=== PATIENT | male | born 1985 | race Hispanic/Latino ===

== ENCOUNTER 2024-12-22 12:25 | Emergency (ER) | payer SELFPAY ==
[2024-12-22 12:27] VITALS: BP 160/103
--- NOTE | 2024-12-22 13:19 | ED.SKININJ ---
HPI-Injury
General
Chief Complaint: Skin Surface Trauma
Source: patient
Exam Limitations: none
Time Seen by Provider: 12/22/24 13:10
History of Present Illness-Injury
Initial Injury comments:
39-year-old male [id number] presents with left long finger laceration. He sustained this via a hedge tremor. He notes is deep and is having trouble straighten the tip of his finger. He also notes pain over the midportion of his finger.
Last tetanus unknown.
Phy Exam
Physical Exam
Physical Exam:
General: Well-appearing male no acute distress
Skin: 3 cm transverse laceration dorsal aspect overlying middle phalanx of left long finger there is tendon and potentially bone involvement
Musculoskeletal exam: There is a flexion deformity of the DIP joint of the long finger. He also has a deformed middle phalanx of the long finger
Neurologic: Good sensation to the distal portion of the long finger
Vascular: Brisk capillary refill to the finger
Course
Orders/Labs/Results
Orders:
Orders
12/22/24 13:18
Tetanus/Diphth/Acelpertussis [Adacel] 0.5 ml IM .ONCE ONE
CR Finger(s)/thumb Min 2 Vw Lt Urgent
Comment:
Reason For Exam: laceration
Vital Signs
Initial and Last Documented VS:
Initial Vital Signs
Temp Pulse Resp BP Pulse Ox
98.0 F 120 16 160/103 98
12/22/24 12:27 12/22/24 12:27 12/22/24 12:27 12/22/24 12:27 12/22/24 12:27
Last Documented Vital Signs
Temp Pulse Resp BP Pulse Ox
98.0 F 79 20 129/68 99
12/22/24 12:27 12/22/24 14:00 12/22/24 14:00 12/22/24 14:00 12/22/24 14:00
MDM/Problems Addressed
Differential Diagnosis Includes:
Deep laceration left long finger with likely extensor tendon and bone involvement. Will obtain x-rays. Is vaccine updated.
*Critical Care Note
Total Time (30-74mins, 75-104mins- exclusive of procedures): Not Applicable
Update Note
Update Note:
X-ray demonstrates fracture through the midportion of the middle phalanx that is displaced and angulated slightly. There is a flexion deformity of the DIP noted on the x-ray as well. Exam most consistent with an open fracture secondary to
laceration of the middle phalanx with involved extensor tendon laceration. Sent pictures of the x-rays to orthopedics who recommended irrigating the finger updating a tetanus starting on antibiotics and closing the skin. The finger was
anesthetized using a digital block with a combination of 1% lidocaine and 0 point Marcaine. This provided adequate anesthesia. The finger was soaked in saline and Betadine. The finger was then closed using 4-0 Prolene sutures in a simple erupted
fashion. 5 sutures were required to close the skin. The fracture was reduced and then splinted. He will be started on Keflex and advised to follow-up with next available appoint with hand specialist
ED Attending Note
-
Portions of this chart may have been created with voice recognition software.� Occasional wrong word or��sound alike� substitutions may have occurred due to the inherent limitations of voice recognition software.
Discharge Plan
Departure
Patient Disposition: Home (Routine Discharge)
Date of Disposition: 12/22/24
Time of Disposition: 15:12
Patient with high blood pressure during this ER visit?: No
Discharge Problem:
Open fracture, Tendon laceration
Prescriptions:
New
cephalexin 500 mg capsule
500 mg PO Q6H 7 Days Qty: 28 0RF
Referrals:
NONE,* [Family Provider, Internal Medicine]
Misha Gastelum MD [Active, Orthopedics]
Activity Restrictions/Additional Instructions:
Take antibiotics as directed. The sutures need to be removed in 2 weeks however, you need to see a hand specialist before then to evaluate your bony injury and tendon laceration. You may need further intervention to fix these areas use ibuprofen
or Tylenol for pain
Interventions
Interventions:
*Risk Screen - Suicide Last Done: 12/22/24 12:27
*General Assessment Last Done: 12/22/24 13:00
*Neglect/Abuse Screening Last Done: 12/22/24 12:30
*ED COVID-19 Vaccine History Last Done: 12/22/24 13:00
ED-Skin Assessment Last Done: 12/22/24 13:00
Discharge Date and Time
Print Language: GEORGIAN
[2024-12-22 14:00] VITALS: BP 129/68
[2024-12-22] MEDS: ADACEL 0.5 ML IM (14:34)
== END 2024-12-22 15:30 | disposition home or self-care (01) ==
LOC: EMR 12:25
PROVIDERS: EMERGENCY PHYSICIAN Emergency Medicine
DX: S62.623B Displaced fracture of middle phalanx of left middle finger, initial encounter for open fracture (principal); W29.3XXA Contact with powered garden and outdoor hand tools and machinery, initial encounter; Z23 Encounter for immunization
CPT/HCPCS: 99283; 26725; 90471; 73140; 90715

== ENCOUNTER 2024-12-28 06:38 | Day surgery (SDC) | payer OTHER, SELFPAY ==
[2024-12-28] VITALS (9 sets, daily range): BP systolic 106–133; BP diastolic 68–83; BMI 27.2
[2024-12-28] MEDS: TYLENOL 1000 MG PO (12:10)
[2024-12-28] MEDS: CELEBREX 200 MG PO (12:10)
[2024-12-28] MEDS: NORMOSOL-R/PLASMALYTE-A 1000 IV (12:10)
== END 2024-12-28 16:40 | disposition home or self-care (01) ==
LOC: SDS 06:38
PROVIDERS: ATTENDING PHYSICIAN Orthopaedic Surgery Hand Surgery
DX: S62.623A Displaced fracture of middle phalanx of left middle finger, initial encounter for closed fracture (principal)
CPT/HCPCS: 26735; 11012; 26418; C1713

== ENCOUNTER 2025-01-21 16:09 | Emergency (ER) | payer SELFPAY ==
[2025-01-21 16:14] VITALS: BP 158/93
[2025-01-21 16:56] LABS: ALT (SGPT) 82 U/L (0-50); AST (SGOT) 43 U/L (17-59); Albumin 4.9 g/dl (3.5-5.0); Alkaline Phosphatase 77 U/L (38-126); Blood Urea Nitrogen 24 mg/dl (9-20); Calcium 9.1 mg/dl (8.4-10.2); Carbon Dioxide 24 mmol/L (22-30); Chloride 103 mmol/L (98-107); Glucose 105 mg/dl (70-99); Potassium 3.4 mmol/L (3.5-5.1); Sodium 139 mmol/L (135-145); Total Bilirubin 0.8 mg/dl (0.2-1.3); Total Protein 8.3 g/dl (6.3-8.2); eGFR > 60.00
[2025-01-21 17:44] LABS: % Basophils 0.7 % (0-2); % Eosinophils 1.3 % (0-6); % Immature Granulocytes 0.5 % (0-0.5); % Lymphocytes 31.3 % (20.5-51.1); % Monocytes 11.7 % (1.7-9.3); % Neutrophils 54.5 % (42.2-75.2); Absolute Eosinophils 0.1 10^3/uL (0-0.7); Absolute Lymphocytes 1.9 10^3/uL (1.2-3.4); Absolute Monocytes 0.7 10^3/uL (0.1-0.6); Absolute Neutrophils 3.4 10^3/uL (1.4-6.5); Hemoglobin 13.7 g/dL (13.0-18.0); Mean Corp Hgb Conc. 38.1 g/dL (33.0-37.0); Mean Corpuscular Hgb 31.7 pg (27.0-31.0); Mean Corpuscular Volume 83.3 fL (80.0-94.0); Mean Platelet Volume 9.8 fL (7.4-10.4); Nucleated Red Blood Cells % 0 % (-); Platelet Count 214 10^3/uL (130-400); Red Blood Cell Count 4.32 10^6/uL (4.70-6.10); Red Cell Dist. Width 11.3 % (11.5-14.5); White Blood Cell Count 6.1 10^3/uL (4.8-10.8)
--- NOTE | 2025-01-21 17:51 | ED.GENMED ---
History of Present Illness
General
Chief Complaint: Musculo-Skeletal Complaint
Source: patient
Exam Limitations: none
Time Seen by Provider: 01/21/25 17:13
Nursing documentation reviewed up to this point in time: agreed with
History of Present Illness
History of Present Illness:
Patient is a 39-year-old male with past medical history of recent open fracture to left middle finger with recent open reduction internal fixation of the left middle finger phalanx and extensor tendon repair by Dr. Gastelum on December 28.
He reports for the past several days approximately 2-3 days he has had increasing pain to the left middle finger and noted drainage. He also has had a fever as high as 100 yesterday.
Language line used
Review of Systems
Review of Systems
Allergies reviewed?: Yes
All Other Systems: ROS reviewed and negative except as documented in HPI and ROS
Phy Exam
General Physical Exam
General Presentation: no apparent distress
General age: appears stated age
General Skin: warm and dry
General Habitus: normal
General Mental: alert
General Hydration: appears well hydrated
Neurological Exam
Neurological Exam: alert and oriented x3
Musculoskeletal Exam
Musculoskeletal Exam: other (Left middle finger with pin in place purulent drainage to dorsal aspect of finger intact sensation )
Sepsis
Sepsis Screening
Sepsis Assessment: Sepsis Ruled Out
Sepsis Screen
Sepsis Screen: Sepsis Ruled Out
Date: 01/21/25
Time: 22:10
Course
Orders/Labs/Results
Orders:
Orders
01/21/25 16:24
CMP [Comprehensive Metabolic Panel] Urgent
Complete Blood Count/With Diff Urgent
01/21/25 18:46
Clindamycin Phosphate [Cleocin] 300 mg 0.9% Sodium Chloride [Nss] 50 ml IV NOW
01/21/25 19:20
Clindamycin 600 mg/50 ml [Cleocin] 600 mg in 50 ml IV NOW
01/21/25 20:14
Finger(s)/Thumb 2 View Lt [CR Finger(s)/thumb Min 2 Vw Lt] Urgent
Comment:
Reason For Exam: pain
Indicate Which Finger:: Middle Finger
Abnormal Lab Results
01/21/25
16:24
RBC 4.32 L 10^6/uL
(4.70-6.10)
Hct 36.0 L %
(39.0-52.0)
MCH 31.7 H pg
(27.0-31.0)
MCHC 38.1 H g/dL
(33.0-37.0)
RDW 11.3 L %
(11.5-14.5)
Absolute Monos (auto) 0.7 H 10^3/uL
(0.1-0.6)
Monocytes % 11.7 H %
(1.7-9.3)
Potassium 3.4 L mmol/L
(3.5-5.1)
BUN 24 H mg/dl
(9-20)
Creatinine 1.5 H mg/dL
(0.7-1.3)
Glucose 105 H mg/dl
(70-99)
ALT 82 H U/L
(0-50)
Total Protein 8.3 H g/dl
(6.3-8.2)
01/21/25 16:24
01/21/25 16:24
Vital Signs
Initial and Last Documented VS:
Initial Vital Signs
Temp Pulse Resp BP Pulse Ox
99.4 F 110 18 158/93 100
01/21/25 16:14 01/21/25 16:14 01/21/25 16:14 01/21/25 16:14 01/21/25 16:14
Last Documented Vital Signs
Temp Pulse Resp BP Pulse Ox
99.4 F 72 16 145/86 100
01/21/25 16:14 01/21/25 19:49 01/21/25 19:49 01/21/25 19:49 01/21/25 19:49
MDM/Problems Addressed
Differential Diagnosis Includes:
Not limited to finger infection, less likely osteomyelitis
MDM/Problems Addressed:
Patient is a 39-year-old male status post open reduction internal fixation of his left middle finger by Dr. Gastelum December 28. He presents with increasing drainage, pain to the area and reports a low-grade temp of 100 yesterday. On exam patient has
area of purulence to the dorsal aspect of the wound. Temp 99.4 and his white count is normal. Case reviewed with orthopedics on-call Dr. Plunkett who was able to visualize images of his finger via [place] text. As per DR Plunkett IV clindamycin ordered
and as recommended patient to be discharged home with doxycycline with close outpatient follow-up in the office by Dr. Gastelum this week. I did review with patient all instructions in [place]. He is to return if any worsening of symptoms.
*Radiology
Radiology exam reviewed: preliminary read by ED provider
*Pulse Oximetry
SaO2: 100
Oxygen Mode of Delivery: Room air
Patient hypoxic: no
*Critical Care Note
Total Time (30-74mins, 75-104mins- exclusive of procedures): Not Applicable
Patient Management
Discussion with other providers: Policyholder Information Clerk (DR Plunkett)
ED Attending Note
-
Portions of this chart may have been created with voice recognition software.� Occasional wrong word or��sound alike� substitutions may have occurred due to the inherent limitations of voice recognition software.
Discharge Plan
Departure
Patient Disposition: Home (Routine Discharge)
Date of Disposition: 01/21/25
Time of Disposition: 21:53
Patient with high blood pressure during this ER visit?: Yes
Condition: Fair
Covid-19: Not Applicable
Discharge Problem:
Finger infection
Prescriptions:
New
doxycycline hyclate 100 mg capsule
100 mg PO BID Qty: 14 0RF
No Action
cephalexin 500 mg capsule
500 mg PO Q6H 7 Days Qty: 28 0RF
Referrals:
NONE,* [Family Provider, Internal Medicine]
Misha Gastelum MD [Active, Orthopedics]
Activity Restrictions/Additional Instructions:
Tiene ata infecci�n en el dedo. Le administraron antibi�ticos intravenosos en urgencias. [place] los antibi�ticos seg�n las indicaciones jessica 7 d�as a partir de ma�jesús. Se envi� el antibi�christy a mays farmacia. Debe acudir a ata mica de seguimiento con
mays cirujano de mano en los pr�ximos 2 o 3 d�as. Llame el lunes para programar ata mica. Regrese si experimenta cualquier cambio en los s�ntomas, nhi dolor, enrojecimiento, supuraci�n, fiebre, escalofr�os o hinchaz�n.
Interventions
Interventions:
*Risk Screen - Suicide Last Done: 01/21/25 16:14
*General Assessment Last Done: 01/21/25 19:37
*Neglect/Abuse Screening Last Done: 01/21/25 16:14
*ED- Fall Risk Assessment Last Done: 01/21/25 19:37
*ED COVID-19 Vaccine History Last Done: 01/21/25 19:37
ED-Musculoskeletal Assessment Last Done: 01/21/25 19:37
Discharge Date and Time
Print Language: OCCITAN
[2025-01-21 19:49] VITALS: BP 145/86
[2025-01-21] MEDS: CLEOCIN 50 IV (19:53)
--- NOTE | 2025-01-21 22:29 | EDRN ---
Patients finger wrapped and splint applied, used operations superintendent to go over discharge instructions with him.
== END 2025-01-21 22:30 | disposition home or self-care (01) ==
LOC: EMR 16:09
PROVIDERS: EMERGENCY PHYSICIAN Emergency Medicine
DX: L08.9 Local infection of the skin and subcutaneous tissue, unspecified (principal); R03.0 Elevated blood-pressure reading, without diagnosis of hypertension
CPT/HCPCS: 99284; 96365; 73140; 80053; 85025

== ENCOUNTER 2025-02-20 07:19 | Outpatient (RCR) | payer OTHER, SELFPAY | END 2025-02-20 23:59 | disposition home or self-care (01) | LOC: ROT 07:19 | PROVIDERS: ATTENDING PHYSICIAN Student in an Organized Health Care Education/Training Program | DX: S62.623D Displaced fracture of middle phalanx of left middle finger, subsequent encounter for fracture with routine healing (principal); Z73.6 Limitation of activities due to disability | CPT/HCPCS: 97018; 97110; 97140; 97166; 97535; 97760 ==

== ENCOUNTER 2025-03-03 07:22 | Outpatient (RCR) | payer OTHER, SELFPAY | END 2025-03-13 23:59 | disposition home or self-care (01) | LOC: ROT 07:22 | PROVIDERS: ATTENDING PHYSICIAN Student in an Organized Health Care Education/Training Program | DX: S62.623D Displaced fracture of middle phalanx of left middle finger, subsequent encounter for fracture with routine healing (principal); Z73.6 Limitation of activities due to disability; X58.XXXD Exposure to other specified factors, subsequent encounter | CPT/HCPCS: 97018; 97110; 97140 ==